=== PATIENT | female | born 1940 | race Caucasian/White ===

== ENCOUNTER 2018-04-29 08:39 | Emergency (ER) | payer OTHER, BC ==
[~2018-04-29] VITALS: Ht 149.9 cm; Wt 69.4 kg
[~2018-04-29 08:39] MED LIST: ASPIRIN81 M1 PO; DIOVAN160 MG PO; ZOCOR40 MG PO
[2018-04-29] MEDS ORDERED: NAPROSYN500 MG PO (10:09)
[2018-04-29] MEDS ORDERED: FLEXERIL10 MG PO (10:09)
[2018-04-29 10:24] VITALS: BP 156/80
== END 2018-04-29 10:25 | disposition home or self-care (01) ==
LOC: EME 08:39
DX: K59.00 Constipation, unspecified (principal); M62.830 Muscle spasm of back; I10 Essential (primary) hypertension; E11.9 Type 2 diabetes mellitus without complications; Z88.1 Allergy status to other antibiotic agents
CPT/HCPCS: 72070; 74022; 99281; 99284